=== PATIENT | male | born 1990 | race Caucasian/White ===

== ENCOUNTER 2017-08-31 15:49 | Emergency (ER) | payer SELFPAY ==
[~2017-08-31] VITALS: Ht 180.3 cm; Wt 70.0 kg
[~2017-08-31 15:49] MED LIST: IBUP600T26 PO; LORTA5 PO
[2017-08-31 15:52] VITALS: BP 127/80; PULSE 62; RESP 16; TEMP 98; O2SAT 99
[2017-08-31] MEDS ORDERED: ACETAMINOPHEN/HYDROcodone 325 MG/5 MG TAB PO ONE (16:15)
[2017-08-31] MEDS ORDERED: AMOXICILLIN (TRIHYDRATE) 500 MG CAP PO ONE (16:15)
[2017-08-31] MEDS ORDERED: MAGICPED SWISH-SPIT (16:16)
[2017-08-31] MEDS ORDERED: AMOX500T PO (16:16)
--- NOTE | 2017-08-31 16:16 | PD ---
HPI Chief Complaint: Oral / Dental Pain or Problem Time Seen by Provider: 15:57 Travel History International Travel<30 days: No Contact w/Intl Traveler<30days: No Traveled to known affect area: No History of Present Illness HPI 27-year-old male presents to emergency department with left upper canine tooth pain for 2 days. Patient states that he has had increased pain without radiation especially with cold air or fluids. Patient does not describe any inciting event but has been taking ibuprofen with some relief of pain. States he has felt feverish with some chills since this morning. Patient is here today because he cannot tolerate the pain anymore, described as moderate to severe. Denies chest pain or shortness of breath. Denies nausea vomiting or diarrhea. Patient has not contacted a dentist. Says that he probably needs this tooth pulled. PFS Past Medical History Immunizations Current: Yes Social History Alcohol Use: Yes (SOCIALLY) Tobacco Use: Yes (1) Substance Use: No Allergies-Medications (Allergen,Severity, Reaction): Coded Allergies: No Known Allergies (Unverified Adverse Reaction, Unknown, 08/31/17) Reported Meds & Prescriptions Reported Meds & Active Scripts Active Magic Mouthwash Pediatric/Adult Liq (Lidocaine/Diphenhydr/Alum/Mg/Simeth) 60 Ml Susp 5 Ml SWISH-SPIT ACHS Each 5mL contains: Diphenydramine 4.5mg, Viscous Lidocaine 2% 10mg, Maalox Advanced Regular Strength 2.7ml Amoxicillin 500 Mg Tab 500 Mg PO BID 10 Days Review of Systems Except as stated in HPI: all other systems reviewed are Neg Physical Exam Narrative GENERAL: Well-nourished, well-developed patient. SKIN: Focused skin assessment warm/dry. HEAD: Normocephalic. EYES: No scleral icterus. No injection or drainage. Multiple teeth missing including entire upper front incisors. Left canine- no obvious caries or fracture but there is deformity of the tooth. TTP to tooth. No fluctuance of the gingiva. No parasite is tenderness. NECK: Supple, trachea midline. No JVD or lymphadenopathy. CARDIOVASCULAR: Regular rate and rhythm without murmurs, gallops, or rubs. RESPIRATORY: Breath sounds equal bilaterally. No accessory muscle use. MUSCULOSKELETAL: No cyanosis, or edema. BACK: Nontender without obvious deformity. No CVA tenderness. Data Data Last Documented VS Vital Signs Date Time Temp Pulse Resp B/P (MAP) Pulse Ox O2 Delivery O2 Flow Rate FiO2 08/31/17 15:52 98.0 62 16 127/80 (96) 99 Orders Orders Acetamin-Hydrocod 325-5 Mg ([place] 5-325 (08/31/17 16:15) Amoxicillin (Trimox) (08/31/17 16:15) Ed Discharge Order (08/31/17 16:37) MDM Medical Decision Making Medical Screen Exam Complete: Yes Emergency Medical Condition: Yes Differential Diagnosis Left upper incisor tooth fracture, infection, gingivitis Narrative Course 27-year-old male presents to emergency department with left upper canine tooth pain for 2 days. Patient states that he has had increased pain without radiation especially with cold air or fluids. Patient does not describe any inciting event but has been taking ibuprofen with some relief of pain. States he has felt feverish with some chills since this morning. Patient is here today because he cannot tolerate the pain anymore, described as moderate to severe. Denies chest pain or shortness of breath. Denies nausea vomiting or diarrhea. Patient has not contacted a dentist. Says that he probably needs this tooth pulled. Vital signs stable. Physical exam findings consistent with dental infection versus gingivitis versus tooth fracture. Hydrocodone and amoxicillin administered in the emergency department. Patient will be discharged with Magic mouthwash and amoxicillin. Advised to follow-up with a dentist within 1 week. Return to the emergency department for worsening or persistent symptoms. Diagnosis Primary Impression: Dental infection Referrals: Primary Care Physician Additional Instructions: Follow up with your primary care physician within 2-3 days. If your symptoms persist or worsen, return to the emergency department. Scripts Mfrnvkkyfiabhfw-Thrzxtrlr-Nij-Alum-Simeth Liq (Magic Mouthwash Pediatric/Adult Liq) 60 Ml Susp 5 ML SWISH-SPIT ACHS for Mouth sores, #60 ML 0 Refills Each 5mL contains: Diphenydramine 4.5mg, Viscous Lidocaine 2% 10mg, Maalox Advanced Regular Strength 2.7ml Prov: Jayleen Lowry 08/31/17 Amoxicillin (Amoxicillin) 500 Mg Tab 500 MG PO BID for Infection for 10 Days, #20 TAB 0 Refills Prov: Jayleen Lowry 08/31/17 Disposition: 01 DISCHARGE HOME Condition: Stable Jayleen Lowry Aug 31, 2017 16:16
== END 2017-08-31 16:55 | disposition home or self-care (01) ==
LOC: PHEFT 15:49
DX: K04.7 Periapical abscess without sinus (principal); Z72.0 Tobacco use
CPT/HCPCS: 99284